=== PATIENT | female | born 1980 | race Two or more races ===

== ENCOUNTER 2025-05-05 06:10 | Day surgery (SDC) | payer SELFPAY ==
[2025-05-05] VITALS (10 sets, daily range): BP systolic 99–121; BP diastolic 54–79; BMI 19.8
[2025-05-05] MEDS: TYLENOL 1000 MG PO (06:58)
[2025-05-05] MEDS: NORMOSOL-R/PLASMALYTE-A 1000 IV (06:59)
[2025-05-05] MEDS: VANCOCIN 200 IV (07:14)
[2025-05-05] MEDS: EMEND 40 MG PO (07:26)
--- NOTE | 2025-05-05 10:50 | W.IMMPOSTOP ---
Surgical Immed Post Op Note
-
Primary Surgeon: GILBERTO De La Cruz MD
Assisting Surgeon:
Pre-op Diagnosis: Unacceptable cosmetic appearance
Post-op Diagnosis: Same
Procedure Performed: Bilateral breast augmentation
Anesthesia Type: General
Specimen / Cultures: None
Estimated Blood Loss: 15 cc
Complications: None
Operative Findings: As expected
--- NOTE | 2025-05-05 10:50 | OR.RPT ---
Operative Report
Operative Report
Date of surgery: 05/05/2025
Surgeon: GILBERTO De La Cruz MD
Preoperative diagnosis:
1. Unacceptable cosmetic appearance
2. Micromastia
3. Ptosis
Procedure: Bilateral dual plane breast augmentation with silicone gel implants
Anesthesia: General
EBL: 15 cc
Complications: None
Implants: Sientra cohesive silicone gel breast implants, 440 cc, bilateral
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 She presented with concerns over loss of breast volume. She was interested in a bilateral breast augmentation.
Options were reviewed including implants and autologous tissue. Autologous tissue would not offer enough of a correction in her case. Saline and silicone gel implants for breast augmentation were reviewed with the patient. She selected a smooth
round highly cohesive silicone gel implant. Risks of breast implants were reviewed at length including capsular contracture, sensory changes, infection, malposition, rupture, BII, FELIPE ALCL. We discussed the correction of breast ptosis and nipple
position with a mastopexy. At present, she would like to avoid the additional scar burden. She understands that nipple position may not be optimized however this can be corrected in a second stage. The anticipated postoperative course with
high-riding implants that would later settle was reviewed. She understood these risk desire to proceed and was consented accordingly.
Procedure in detail:
Patient was identified in the preoperative suite and all questions were answered. She was then marked in the upright position. Consents were confirmed. Implant size was confirmed with the patient preoperatively. Patient was then taken back to
the operating room placed supine. She was prepped and draped in the usual sterile fashion using ChloraPrep solution. Timeout for patient safety was performed and was confirmed that preoperative antibiotics have been administered and bilateral SCDs
were in place. Procedure began with the injection 1% lidocaine with epinephrine in the bilateral proposed inframammary fold incisions. Prior to incision, 3.5 cm inframammary fold incisions were marked for symmetry on the chest wall in the
inframammary fold. Procedure began on the right side, making incision with a 15 blade. Bovie electrocautery was used to dissect down to the pectoralis fascia. Retraction was utilized to lift the pectoralis major off the chest wall and develop a
plane in the subpectoral space. A lighted retractor was then used to dissect the pectoralis muscle off the chest wall leaving pectoralis minor down. Tendinous insertions along the medial aspect were taken down being sure to maintain sternal
attachment. Lateral dissection was performed with a combination of blunt dissection and selective cautery to release the pectoralis major muscle. After the subpectoral pocket was established, the pectoralis major was taken off of its inframammary
attachments along the fold being sure to leave 1 cm cuff. Attention was then drawn to dissecting free the parenchymal tissue from the pectoralis major in a dual plane fashion. Meticulous hemostasis was ensured and the pocket was irrigated with
double antibiotic solution followed by dilute Betadine. The skin was reprepped and new gloves were donned. A 440 cc high-profile Sientra silicone gel implant was then placed using a Parish funnel and a 'no touch' technique. An adequate volume
correction of been achieved and the wound was closed using 2-0 Vicryl followed by 3-0 and 4-0 Monocryl. The patient was then flexed at the waist in order to assure appropriate implant positioning. Patient was returned supine and the same
procedures were performed on the left side. The inframammary incision was made with a 15 blade and Bovie electrocautery was utilized to dissect down the pectoralis fascia. Pectoralis major was raised off of the chest wall in the subpectoral plane.
Tendinous insertion medially were taken down maintaining sternal attachment. Lateral dissection was performed bluntly using Bovie only to free the pectoralis major. A 1 cm cuff was left inferiorly as the pectoralis was taken off of the
inframammary attachments. Meticulous hemostasis was ensured and a dual plane dissection proceeded freeing the breast parenchyma from the pectoralis major. The pocket was then irrigated with double antibiotic solution followed by dilute Betadine.
New gloves were donned and another 440 cc implant was placed in the left side using a 'no touch' technique after reprepping the skin. The wound was closed with 2-0 Vicryl deep followed by 3-0 and 4-0 Monocryl. The patient was again flexed at the
waist to ensure adequate symmetry and implant positioning. It been determined that a nice correction had been achieved. Marcaine blocks were performed for local anesthesia. The patient tolerated the procedure well, was performed out complication.
All counts were correct at the end the case. The wounds were dressed and an Rolo wrap was applied for compression. She was extubated taken the PACU for further care.
[2025-05-05] MEDS: ZOFRAN 4 MG IV (11:17)
== END 2025-05-05 12:24 | disposition home or self-care (01) ==
LOC: COSMETIC 06:10
PROVIDERS: ATTENDING PHYSICIAN Surgery Plastic and Reconstructive Surgery
DX: Z41.1 Encounter for cosmetic surgery (principal); N64.82 Hypoplasia of breast; N64.81 Ptosis of breast
CPT/HCPCS: 19325; C1789